=== PATIENT | male | born 1935 | race Caucasian/White ===

== ENCOUNTER 2017-09-02 11:03 | Day surgery (SDC) | payer MEDICARE, BC ==
[~2017-09-02 11:03] MED LIST: BUPIVACAINE HCL 0.75% INJ/PF (7.5 MG/1 ML) 10 ML SDV OS PRN; KETOROLAC TROMETHAMINE 0.45% 4 DROP/0.4 ML DROPERETTE OS PRN; LIDOCAINE 4% INJ/PF (40 MG/ML) 5 ML AMPUL OS PRN
[2017-09-02] MEDS ORDERED: CHONDR SU A NA/HYALUR INTRAOC KIT (SURGICARE) ONE ×2 (11:20→13:12)
[2017-09-02] MEDS ORDERED: EPINEPHRINE INJ/PF 1 MG/1 ML AMPULE ONE (11:20)
[2017-09-02] MEDS ORDERED: LIDOCAINE 1% INJ-PF (10 MG/ML) 30 ML SDV ONE (11:21)
[2017-09-02] MEDS: TETRACAINE HCL 0.5% OPH SOLN 0.6 ML DROPERETTE OS PRN ×2 (12:14→12:42)
[2017-09-02] MEDS: CYCLOPENTOLATE 0.2%/PHENYLEPHRINE 1% OPH SOLN 2 ML OS PRN ×3 (12:14→12:35)
[2017-09-02] MEDS: TROPICAMIDE 1% OPH SOLN 3 ML OS PRN ×3 (12:14→12:35)
[2017-09-02] MEDS: BESIFLOXACIN HCL 0.6% OPH SUSP 5 ML BOTTLE OS PRN ×4 (12:15→13:25)
[2017-09-02] MEDS ORDERED: FENTANYL CITRATE INJ/PF 100 MCG/2 ML AMPUL ONE (12:40)
[2017-09-02] MEDS ORDERED: MIDAZOLAM 2 MG/2 ML INJ ONE (12:40)
[2017-09-02] MEDS ORDERED: CHONDR SU A NA/HYALUR SOD 0.5 ML DISP.SYRIN ONE (13:12)
--- NOTE | 2017-09-02 13:39 | [facility] OPERATIVE REPORT E ---
[facility] Operative Report NAME: RANI BELL AGE: 81Y DATE OF SURGERY: 09/02/2017 ROOM: PREOPERATIVE DIAGNOSIS: Cataract, left eye. POSTOPERATIVE DIAGNOSIS: Cataract, left eye. PROCEDURE PERFORMED: Phacoemulsification with posterior chamber intraocular lens, left eye. SURGEON: JOE HORNER M.D. ANESTHESIA: Topical with MAC plus intraocular lidocaine. PROCEDURE: The patient was brought to the Operating Room and placed on the operative table. Following tetracaine drops, topical anesthesia was administered. This consisted of instrument wipe pledgets soaked in a solution of 4% Xylocaine mixed with 0.75% Marcaine in a 1:2 ratio. A 2 x 1 cm pledget was placed in the superior fornix. A 1 x 1 cm pledget was placed in the inferior fornix. The eye was patched shut for 5 minutes. The patch was removed. The eye was sterilely prepped and draped in the usual manner. Lid speculum was placed in the eye. The pledgets were removed. 4-0 black silk sutures were placed around the superior and the inferior rectus muscles to be used as traction. A conjunctival peritomy was made at the 10 o'clock position. Hemostasis was obtained with bipolar cautery. A posterior limbal groove was created using a crescent knife and dissected anteriorly towards the cornea. A sharp point blade was used to create a paracentesis site at the 2 o'clock position. A 2.4 mm keratome was used to enter the anterior chamber through the groove. Viscoelastic was injected into the anterior chamber. An anterior capsulotomy was performed using Utrata forceps in a capsulorrhexis fashion. Hydrodissection and hydrodelineation were performed. Phacoemulsification was performed in lyuvtt-won-gbpebmw technique. A total of 1 minute, 12 seconds phaco time was used. Following this, the I/A unit was used to remove residual cortex. Viscoelastic was injected into the capsular bag. Intraocular lens model SN60WF, 19.5 diopters, serial number [id number] was placed in the capsular bag. The I/A unit was used to remove residual viscoelastic. The wound was seen to be watertight under high and low pressure, and no sutures were placed. The intraocular lens was well centered. The pressure was adjusted in the eye to normal pressure. The 4-0 black silk sutures and lid speculum were removed. The eye was shielded after Besivance drops were placed. The patient tolerated the procedure well and was sent to the Recovery Room in good condition. DICTATING PHYSICIAN: JOE HORNER M.D. [id number] PHY#: [id number] ID: [id number] JOB#: [id number] ACCT: [id number] cc:JOE HORNER M.D. >
--- NOTE | 2017-09-02 13:43 | [facility] DISCHARGE SUMMARY E ---
[facility] Discharge Summary NAME: RANI BELL AGE: 81Y ADMITTED: 09/02/2017 DISCHARGED: 09/02/2017 HOSPITAL COURSE: The patient is a 81-year-old gentleman who underwent uneventful cataract extraction with intraocular lens implant left eye on 09/02/2017. He will be discharged to home. He is instructed to resume preoperative medications, take Tylenol as needed for discomfort, to keep his eye shielded, to use Besivance, Durezol, and Ilevro at 3 p.m. and 8 p.m., and to follow up in my office in 1 day. DICTATING PHYSICIAN: JOE HORNER M.D. [id number] PHY#: [id number] ID: [id number] JOB#: [id number] ACCT: [id number] cc:JOE HORNER M.D. >
== END 2017-09-02 14:25 | disposition home or self-care (01) ==
LOC: SC 11:03
PROVIDERS: ATTEND Ophthalmology
PROC: 08RK3JZ Replacement of Left Lens with Synthetic Substitute, Percutaneous Approach (ICD-10-PCS; principal; 2017-09-02 13:00)
DX: H25.812 Combined forms of age-related cataract, left eye (principal); H11.0 Pterygium of eye; Z96.1 Presence of intraocular lens; M10.9 Gout, unspecified; I10 Essential (primary) hypertension; E78.00 Pure hypercholesterolemia, unspecified; E03.9 Hypothyroidism, unspecified; Z88.5 Allergy status to narcotic agent; Z79.82 Long term (current) use of aspirin
CPT/HCPCS: 66984; V2632; J2250; J3490 ×5; A9270; J0171; J3010; 142